=== PATIENT | male | born 2000 | race African-American/Black ===

== ENCOUNTER 2019-12-11 20:50 | Emergency (ER) | payer OTHER, SELFPAY ==
--- NOTE | ~2019-12-11 | XR_ITS ---
EXAMINATION: XR hand RT min 3V DATE: 12/11/2019 21:30 INDICATION: Right hand injury and pain. TECHNIQUE: 3 views of right hand were obtained. COMPARISON: None. FINDINGS: There is an oblique fracture of diaphysis of third metacarpal. The distal fracture fragment demonstrates 2 mm dorsal displacement and 1 mm ulnar displacement. Joint spaces are normal. IMPRESSION: 1. Oblique fracture of diaphysis of third metacarpal. Reviewed, dictated and finalized at location A.
[2019-12-11 21:03] VITALS: BP 146/98; PULSE 102; RESP 20; TEMP 37.3; O2SAT 99
--- NOTE | 2019-12-11 21:20 | ED.UPPEXIN ---
HPI - Extremity Injury (Upper) General Chief Complaint: Extremity Injury, Upper Stated Complaint: right hand injury Time Seen by Provider: 12/11/19 21:16 Source: patient Mode of arrival: ambulatory Limitations: no limitations History of Present Illness HPI narrative: This is a 19 year old male that presents to the ER for right hand injury sustained today. Reports he was digging a hole to burry his dog. Reports he lifted the shovel up and when he pressed it back down the metal handle hit his right hand. Reports feeling a pop. Reports since he has had pain in the hand. Denies decreased ROM or numbness. Related Data Allergies Allergy/AdvReac Type Severity Reaction Status Date / Time No Known Allergies Allergy Verified 12/11/19 21:42 Review of Systems Review of Systems: Narrative: CONSTITUTIONAL: Denies fever MUSCULOSKELETAL: Reports joint pain, and myalgia. NEUROLOGIC: Denies numbness All systems reviewed & are unremarkable except as noted in HPI and below PMFSH Past Medical History Medical History (Updated 12/11/19 @ 21:49 by Martina Lundy PA-C) History of depression Social History Social History (Updated 12/11/19 @ 21:41 by Martina Lundy PA-C) Smoking status: Never smoker Exam Narrative: Exam Narrative: GENERAL: Well-appearing, well-nourished, and in no acute distress. HEAD: Normocephalic, atraumatic. EYES: EOMI. EXTREMITIES: Normal range of motion. Mild edema over the right third metacarpal bone dorsal surface, tender to palpation. Normal sensation. Normal radial pulses SKIN: Warm, dry, no rash. NEURO: No focal deficits. Alert and oriented x3. PSYCH: Normal mood and affect Course Consultations Consultation #1: Spoke with Dr. Pineda about patient and work-up will follow-up in clinic. Date: 12/11/19 Time: 21:47 Vital Signs Vital signs: Vital Signs Temperature 99.1 F 12/11/19 21:03 Pulse Rate 102 H 12/11/19 21:03 Respiratory Rate 12/11/19 21:03 Blood Pressure 146/98 H 12/11/19 21:03 Pulse Oximetry 99 12/11/19 21:03 Temperature 99.1 F 12/11/19 21:03 Pulse Rate 102 H 12/11/19 21:03 Respiratory Rate 12/11/19 21:03 Blood Pressure 146/98 H 12/11/19 21:03 Pulse Oximetry 99 12/11/19 21:03 Procedures Orthopedic Splinting/Casting Injury #1: Splinting/Casting Date: 12/11/19 Splinting/Casting Time: 21:49 Side: right Upper Extremity Injury Location: hand Upper Extremity Immobilizer: volar splint Splint: customized in ED OCL: volar Pre-Procedure Neuro Vascular Exam: normal Post-Procedure Neuro Vascular Exam: normal MDM - Extremity Injury (Upper) MDM Narrative Medical decision making narrative: Patient presents the emergency department for right hand injury today. Right hand x-ray shows an oblique fracture of the diaphysis of the third metacarpal. Patient placed in a volar splint. Spoke with Dr. Pineda about patient and work-up will follow-up in clinic. Patient was given warnings to return to the ER Imaging Data Radiologist's impression: ITS Impressions Hand X-Ray 12/11/19 21:32 IMPRESSION: 1. Oblique fracture of diaphysis of third metacarpal. Critical Care Time Critical Care Time Critical Care Time: No Discharge Plan Discharge Clinical Impression: Closed displaced fracture of third metacarpal bone of right hand Qualifiers: Encounter type: initial encounter Metacarpal location: shaft Qualified Code(s): S62.322A - Displaced fracture of shaft of third metacarpal bone, right hand, initial encounter for closed fracture Patient Disposition: Home, Self-Care Condition: Stable Instructions: Hand Fracture (ED) Additional Instructions: Return to the emergency department if you experience fever, redness and swelling of your hand, or any other symptoms that are concerning to you Rest. Ice. Elevate. [id number] pain medication as needed. Prescribed pain medication as ne
[2019-12-11 22:25] VITALS: BP 139/88; PULSE 94; RESP 18; TEMP 36.8; O2SAT 100
== END 2019-12-11 22:27 | disposition home or self-care (01) ==
PROVIDERS: Emergency Provider Emergency Medicine
DX: S62.322A Displaced fracture of shaft of third metacarpal bone, right hand, initial encounter for closed fracture (principal); W22.8XXA Striking against or struck by other objects, initial encounter
CPT/HCPCS: 29125; 73130; 99284